=== PATIENT | male | born 1950 | race Caucasian/White ===

== ENCOUNTER 2016-10-06 22:25 | Emergency (ER) | payer OTHER ==
[~2016-10-06] VITALS: Ht 175.3 cm; Wt 77.1 kg
[2016-10-06] MEDS ORDERED: IV NS 0.9% 1,000 ML ONE (22:29)
[2016-10-06] MEDS: IV NS 0.9% 1,000 ML BAG IV ONE (22:36)
--- NOTE | 2016-10-06 22:40 | NUR ---
tristanra from restaurant for syncope. Pt is aao3, Appears in no apparent distress. Respiration even and unlabored. No sob, no chest pain. Skin is warm to touch and non diaphoretic. patient is afebrile. vss. iv on lac noted intact. Connected pt to tle monitor
[2016-10-06 22:55] VITALS: BP 97/60
--- NOTE | 2016-10-06 22:58 | NUR ---
Patient does not wish to proceed with medical care recommended by Dr. Tripp. Patient given information related to possible complications, up to and including , which could occur as a result of leaving the hospital at this time. Patient verbalizes understanding of risks involved due to leaving against medical advice. Patient has signed AMA form.
== END 2016-10-06 23:01 | disposition home or self-care (01) ==
LOC: ER 22:27
DX: R55 Syncope and collapse (principal); F32.9 Major depressive disorder, single episode, unspecified
CPT/HCPCS: A4606; J7030; Z7610